=== PATIENT | female | born 1945 | race Caucasian/White ===

== ENCOUNTER 2020-11-21 08:00 | Inpatient (IN) | payer OTHER ==
[~2020-11-21] VITALS: Ht 152.4 cm; Wt 45.4 kg
[~2020-11-21 08:00] MED LIST: DURICEF 500 MG CAPSULE PO; NORVASC5 MG PO; SYNTHROID50 MCG PO; TRAM1TAB98 PO; TROPOL PO; ZOCOR20 MG PO
[2020-11-21] MEDS ORDERED: LEVOXYL25 MCG PO (10:46)
[2020-11-21] MEDS ORDERED: HYZAAR 100-251 EACH PO (10:46)
[2020-11-21] MEDS ORDERED: ZOLOFT25 MG PO (10:46)
[2020-11-21] MEDS ORDERED: CLONAZEPAM0.5 MG PO (10:47)
[2020-11-21] MEDS ORDERED: LEVOT PO (10:48)
[2020-11-21] MEDS ORDERED: NORVASC2.5 MG PO (10:49)
[2020-11-21] MEDS ORDERED: PROTONIX40 MG PO (10:49)
[2020-11-21] MEDS ORDERED: GABAPE PO (10:50)
[2020-11-21] MEDS ORDERED: PEPCID PO (10:50)
[2020-11-28] MEDS ORDERED: POTASSIUM CHLO20 ME2 (16:45)
[2020-11-28] MEDS ORDERED: FAMOTIDINE40 MG (16:45)
[2020-11-28] MEDS ORDERED: SUCRALFATE1 GM (16:46)
[2020-11-28] MEDS ORDERED: IBANDRONATE SO150 MG (16:46)
[2020-11-28] MEDS ORDERED: LEVOCARNITINE330 MG (16:46)
[2020-11-28] MEDS ORDERED: AMLODIPINE BESYL5 MG (16:46)
[2020-11-28] MEDS ORDERED: SYSTANE 0.3-0.415 ML (16:46)
[2020-11-28] MEDS ORDERED: SERTRALINE HCL50 MG (16:47)
[2020-11-28] MEDS ORDERED: GABAPENTIN100 M2 (16:47)
== END 2020-11-29 15:38 | disposition home or self-care (01) | DRG 334 ==
LOC: O/R 11-28 06:24 → SURH 11-28 06:24
PROVIDERS: ADMIT Colon & Rectal Surgery; ATTEND Colon & Rectal Surgery
PROC: 0DBN7ZZ Excision of Sigmoid Colon, Via Natural or Artificial Opening (ICD-10-PCS; 2020-11-28)
PROC: 0KXM0ZZ Transfer Perineum Muscle, Open Approach (ICD-10-PCS; 2020-11-28)
PROC: 0DTP7ZZ Resection of Rectum, Via Natural or Artificial Opening (ICD-10-PCS; principal; 2020-11-28 07:00)
DX: K62.3 Rectal prolapse (principal); R15.9 Full incontinence of feces